=== PATIENT | female | born 1965 ===

== ENCOUNTER 2019-10-25 11:53 | Outpatient (REF) | payer OTHER, SELFPAY ==
[2019-10-25 21:05] LABS: HCT 42.2 % (36.0-46.0); HGB 13.9 g/dL (12.0-15.5); Mean Corp. HGB Concentration 32.9 g/dL (32.0-36.0); Mean Platelet Volume 10.3 fL (8.0-11.0); Platelet Count 273 x1000/uL (130-400); RBC 4.49 m/cumm (4.00-5.20); RBC Distribution Width 12.2 % (11.7-14.6); White Blood Cell Count 6.23 k/cumm (4.4-10.8)
[2019-10-25 21:17] LABS: ALT 34 U/L (14-59); AST 17 U/L (15-37); Alkaline Phosphatase 62 U/L (46-116); Anion Gap 7.7 mmol/L (3-11); BUN 13 mg/dL (7-18); Bilirubin, Total 0.3 mg/dL (0.2-1.0); CO2 30.3 mmol/L (21.0-32.0); CREATININE 0.62 mg/dL (0.55-1.02); Calcium 9.5 mg/dL (8.5-10.1); Calculated LDL 161 mg/dL; Chloride 103 mmol/L (98-107); Cholesterol 258 mg/dL (<200); Glucose 90 mg/dL (74-106); HDL Cholesterol 79 mg/dL (40-60); Potassium 4.1 mmol/L (3.5-5.1); Sodium 141 mmol/L (136-145); TSH (W/Ref FT4) 1.77 uIU/mL (0.36-3.74); Total Protein 6.6 g/dL (6.4-8.2); Triglyceride 92 mg/dL (<150)
[2019-10-25 21:34] LABS: Hemoglobin A1C 5.8 % (3.8-5.6)
== END 2019-10-25 12:13 ==
LOC: NCHCN 11:53
PROVIDERS: PCP Nurse Practitioner Community Health; Visit Provider Nurse Practitioner Community Health
DX: R00.2 Palpitations (principal)
CPT/HCPCS: 80053; 80061; 85027; 83036; 84443